=== PATIENT | male | born 1950 | race Caucasian/White ===

== ENCOUNTER → 2018-12-24 | Outpatient (REF) | payer OTHER | LOC: M LAB LCGH 17:30 | PROVIDERS: ATTEND Surgery | DX: R10.13 Epigastric pain (principal); Z12.11 Encounter for screening for malignant neoplasm of colon ==

== ENCOUNTER → 2018-12-30 | Outpatient (REF) | payer OTHER | LOC: M LAB LCGH 11:48 | PROVIDERS: ATTEND Surgery | DX: D23.30 Other benign neoplasm of skin of unspecified part of face (principal) ==

== ENCOUNTER → 2024-01-20 | Outpatient (REF) | payer OTHER ==
[~2024-01-20] MED LIST: AMLO1TAB24 PO; ESOM20CA2 PO; METO1TAB7 PO; THERTAB52 PO
== END ==
LOC: M SMT PRO 12:35
PROVIDERS: ATTEND Urology
DX: C61 Malignant neoplasm of prostate (principal); N40.2 Nodular prostate without lower urinary tract symptoms; R97.20 Elevated prostate specific antigen [PSA]; Z79.899 Other long term (current) drug therapy; Z80.0 Family history of malignant neoplasm of digestive organs; Z80.1 Family history of malignant neoplasm of trachea, bronchus and lung; Z80.42 Family history of malignant neoplasm of prostate; Z80.8 Family history of malignant neoplasm of other organs or systems; Z87.891 Personal history of nicotine dependence

== ENCOUNTER 2024-03-11 06:25 | Day surgery (SDC) | payer OTHER ==
[~2024-03-11] VITALS: Ht 177.8 cm; Wt 84.5 kg
[2024-03-11] VITALS (8 sets, daily range): BP systolic 133–152; BP diastolic 75–81; TEMP 97.5–98.2; O2SAT 95–98
[2024-03-11] MEDS ORDERED: LIDOCAINE 2% 100MG/5ML SDV (FOR ANES.) As Ordered ONE (06:48)
[2024-03-11] MEDS ORDERED: propofoL 200 MG/20 ML VIAL As Ordered ONE (06:49)
[2024-03-11] MEDS ORDERED: ONDANSETRON 4MG 2ML VIAL As Ordered ONE (06:49)
[2024-03-11] MEDS ORDERED: ROCURONIUM BROMIDE 50MG/5ML VIAL As Ordered ONE (06:49)
[2024-03-11] MEDS ORDERED: VASOPRESSIN INJ 20UNITS/ML 1ML VIAL As Ordered ONE (06:53)
[2024-03-11] MEDS ORDERED: dexmedeTOMIDine (4MCG/ML)200MCG/50ML BTL (PRECEDEX) As Ordered ONE (06:53)
[2024-03-11] MEDS ORDERED: fentaNYL 100 MCG/2 ML INJECTION As Ordered ONE (06:59)
[2024-03-11] MEDS: LR 1,000 ML IV SCH ×2 (07:13→11:45)
[2024-03-11] MEDS ORDERED: MIDAZOLAM INJ 2MG/2ML VIAL As Ordered ONE (07:25)
[2024-03-11] MEDS: ceFAZolin SOD 2 GM in IV 1 EA IV ONE (07:33)
[2024-03-11] MEDS ORDERED: ACETAMINOPHEN TAB 650MG DOSE (2X325MG) PO PRN (07:40)
[2024-03-11] MEDS ORDERED: ONDANSETRON 4MG 2ML VIAL IV PRN (07:40)
[2024-03-11] MEDS: HEPARIN SOD (PORCINE) 5000UNITS/ML 1ML VIAL/SYRINGE As Ordered ONE (07:50)
[2024-03-11] MEDS ORDERED: PHENYLephrine 500MCG 5ML (100MCG/ML) SYRINGE As Ordered ONE (08:08)
[2024-03-11] MEDS ORDERED: SUGAMMADEX SODIUM 500 MG/5 ML VIAL (BRIDION) As Ordered ONE (09:34)
[2024-03-11] MEDS ORDERED: HYDROmorphone HCL 2MG/ML 1ML VIAL As Ordered ONE (11:44)
[2024-03-11] MEDS ORDERED: fentaNYL 100 MCG/2 ML INJECTION IV PRN (11:45)
[2024-03-11] MEDS: LIDOCAINE 1% SDV 30ML VIAL As Ordered ONE (11:50)
[2024-03-11] MEDS: ONDANSETRON 4MG 2ML VIAL IV PRN (12:30)
[2024-03-11] MEDS: HYDROMORPHONE HCL 0.5 MG/ 0.5 ML SYRINGE IV PRN (12:30)
[2024-03-11] MEDS: oxyCODONE 5MG TAB PO PRN (12:30)
[2024-03-11 13:07] LABS: HEMATOCRIT 37.9 % (42.0-52.0); HEMOGLOBIN 13.2 g/dl (13.5-17.5); MEAN CORPUSCULAR HGB CONC 34.8 g/dl (32.0-36.5); PLATELET COUNT, AUTOMATED 181 10^3/uL (150-450); RED BLOOD COUNT 4.12 10^6/uL (4.30-6.10); WHITE BLOOD COUNT 11.9 10^3/uL (4.0-10.0)
[2024-03-11 13:24] LABS: BLOOD UREA NITROGEN 12 MG/DL (9-23); CALCIUM LEVEL 8.7 MG/DL (8.3-10.6); CARBON DIOXIDE LEVEL 27 MMOL/L (20-31); CHLORIDE LEVEL 110 MMOL/L (98-107); CREATININE FOR GFR 0.83 MG/DL (0.70-1.30); GLOMERULAR FILTRATION RATE > 60.0 (>42); GLUCOSE, FASTING 143 MG/DL (74-106); POTASSIUM SERUM 4.1 MMOL/L (3.5-5.1); SODIUM LEVEL 142 MMOL/L (136-145)
[2024-03-11] MEDS: NS 1,000 ML IV SCH (14:33)
[2024-03-11] MEDS ORDERED: HOME MED LIST COMPLETE! XX SCH (14:45)
[2024-03-11] MEDS: ceFAZolin SOD 1 GM in D5W MINI-BAG PLUS 50 ML IV SCH (15:58)
[2024-03-11] MEDS: PERCOCET 5MG/325MG TAB PO PRN (18:33)
[2024-03-11] MEDS: HEPARIN SOD (PORCINE) 5000UNITS/ML 1ML VIAL/SYRINGE SC SCH (20:48)
[2024-03-11] MEDS: DOCUSATE SODIUM 100MG CAPSULE PO SCH (20:48)
[2024-03-12] VITALS: BP 133/74; TEMP 98.2; O2SAT 97
[2024-03-12 03:54] VITALS: BP 159/80; TEMP 98.2; O2SAT 97
[2024-03-12 05:30] LABS: HEMATOCRIT 36.6 % (42.0-52.0); HEMOGLOBIN 12.9 g/dl (13.5-17.5); MEAN CORPUSCULAR HGB CONC 35.2 g/dl (32.0-36.5); MEAN CORPUSCULAR VOLUME 90.8 fl (80.0-96.0); PLATELET COUNT, AUTOMATED 195 10^3/uL (150-450); RED BLOOD COUNT 4.03 10^6/uL (4.30-6.10); WHITE BLOOD COUNT 11.2 10^3/uL (4.0-10.0)
[2024-03-12 06:05] LABS: BLOOD UREA NITROGEN 8 MG/DL (9-23); CALCIUM LEVEL 8.6 MG/DL (8.3-10.6); CARBON DIOXIDE LEVEL 26 MMOL/L (20-31); CHLORIDE LEVEL 107 MMOL/L (98-107); CREATININE FOR GFR 0.73 MG/DL (0.70-1.30); GLOMERULAR FILTRATION RATE > 60.0 (>42); GLUCOSE, FASTING 100 MG/DL (74-106); POTASSIUM SERUM 3.5 MMOL/L (3.5-5.1); SODIUM LEVEL 136 MMOL/L (136-145)
[2024-03-12 08:00] VITALS: BP 134/77; TEMP 98.1; O2SAT 94
[2024-03-12] MEDS: KETOROLAC 30 MG/ML 1ML VIAL IV ONE (08:53)
[2024-03-12 08:54] VITALS: BP 132/79
[2024-03-12] MEDS: amLODIPine 5 MG TAB PO SCH (08:54)
[2024-03-12] MEDS: OMEPRAZOLE 20MG CAP PO SCH (08:55)
[2024-03-12] MEDS: METOPROLOL SUCC (TopROL XL) 50MG **XL** TAB PO SCH (08:56)
[2024-03-12] MEDS: FLUBLOK(EGGFREE) TRIVAL(24-25) VACCINE PF 0.5ML SYRINGE 18YRS & OLDER IM.IMMUN ONE (11:20)
[2024-03-12 12:00] VITALS: BP 120/69; TEMP 97.9; O2SAT 98
[2024-03-12] MEDS: PERCOCET 5MG/325MG TAB PO PRN (14:21)
[2024-03-12] MEDS ORDERED: COLA100C5 PO (14:57)
[2024-03-12] MEDS ORDERED: BACT800T5 PO (14:57)
[2024-03-12] MEDS ORDERED: PERCOCET PO (14:57)
== END 2024-03-12 16:57 | disposition home or self-care (01) ==
LOC: M SDC 06:25 → M MSPAV 14:08 → M SDC 03-12 16:57
PROVIDERS: ATTEND Urology
DX: C61 Malignant neoplasm of prostate (principal); Z23 Encounter for immunization; I10 Essential (primary) hypertension; Z79.899 Other long term (current) drug therapy; F17.218 Nicotine dependence, cigarettes, with other nicotine-induced disorders; F12.10 Cannabis abuse, uncomplicated; K21.9 Gastro-esophageal reflux disease without esophagitis
CPT/HCPCS: 36415; 38571; 55866; 80048; 85027; 86850; 86900; 86901; 88305; 88309; 90673; 96361; 96365; 96366; 96372; 96375; G0008; J0665; J0690; J1100; J1170; J1885; J2250; J2371; J2405; J2598; J3010; S2900